=== PATIENT | female | born 1975 | race Caucasian/White ===

== ENCOUNTER → 2021-09-18 02:59 | Outpatient (CLI) | payer BC, SELFPAY ==
[2021-09-18 12:21] LABS: SARS-CoV-2 RNA PCR Negative
== END ==
PROVIDERS: Visit Provider Internal Medicine Gastroenterology
DX: Z01.812 Encounter for preprocedural laboratory examination (principal); Z20.822 Contact with and (suspected) exposure to COVID-19
CPT/HCPCS: C9803; U0003; U0005

== ENCOUNTER 2021-09-21 00:13 | Day surgery (SDC) | payer BC, SELFPAY ==
--- NOTE | 2021-09-18 13:41 | WPDGICN ---
Assessment and Plan Assessment and plan (1) Dysphagia: Code(s): R13.10 - Dysphagia, unspecified Status: Acute Assessment and Plan: EGD with possible biopsy or dilatation or cautery. We will need to consider adding fluticasone or other topical steroid therapy for eosinophilic esophagitis if biopsies show the same changes (2) Colon cancer screening: Code(s): Z12.11 - Encounter for screening for malignant neoplasm of colon Status: Acute Assessment and Plan: Colonoscopy with possible biopsy or polypectomy or cautery or injection of substances. GI Consult Note Consult date/time: 09/18/21 13:41 HPI: Radhika Morin is a 46 year old female with dysphagia of solid food. Two years ago it appears that she had an EGD for the similar symptoms. Biopsy showed eosinophilia in the esophagus, Both proximal and distal esophagus biopsies showed eosinophilia. She took an inhaled steroid for while but has been doing well with just omeprazole 40 mg daily and no recent dysphagia. She is undergoing colonoscopy. She has a family history of colon cancer in her paternal grand mother. Also her father just had 7 polyps Removed. Review of Systems Review of Systems: All systems reviewed & are unremarkable except as noted in HPI and below PMFSH Past Medical History Medical History Herpes simplex type 1 antibody positive Hx of gastroesophageal reflux (GERD) Screening mammogram for breast cancer Vitamin D deficiency Surgical History Surgical History H/O endoscopy H/O gynecological procedure mirena iud insertion - 2004 Mirena Iud removal 2010 Mirena Iud insertion -2020 History of tonsillectomy Family History Family History Other Cerebrovascular accident Colon polyp Heart disease Social History Social History Smoking status: Never smoker Alcohol intake: never Substance use: never Substance use type: does not use Living arrangements: with family Gender identity (if verbalized by the patient): Female Spiritual care concerns: No Meds Home Medications and Allergies Home Medications Medication Instructions Recorded Confirmed Type bupropion HCl 150 mg 24 hr tablet, 150 mg PO QAM 08/31/21 09/10/21 History extended release levonorgestrel 20 mcg/24 hours (7 1 insert INTRAUTERINE ONCE 08/31/21 09/10/21 History yrs) 52 mg intrauterine device omeprazole 40 mg capsule,delayed 40 mg PO DAILY 08/31/21 09/10/21 History release Allergies Allergy/AdvReac Type Severity Reaction Status Date / Time No Known Allergies Allergy Mild Verified 09/21/21 08:29 Exam Const: General: alert Orientation/consciousness: patient oriented x3 Resp: Auscultation: clear to auscultation bilaterally Cardio: Rhythm: regular rhythm GI: GI Palp: Yes Soft to palpation and No Tenderness to palpation present (GI) Neuro: General: patient oriented x3
[2021-09-21 08:31] VITALS: BP 131/93; PULSE 80; RESP 18; TEMP 36.1; O2SAT 98
[2021-09-21] MEDS: LACTATED RINGERS 1,000 ML 150 ML IV CONT (08:45)
--- NOTE | 2021-09-21 08:48 | WPDANESEPPF ---
Anes - Initial Pre Proc Eval Procedure: Operation Date: 09/21/21 09:30 Proposed Procedures p Esophagogastroduodenoscopy & Screening Colonoscopy - Brian Ko MD Date/Time: 09/21/21 08:48 Surgeon: Brian Ko MD Pre Op Diagnosis: neoplasm screening, eosinophilic esophagitis Patient Data Age: 46 Gender: F Height: 1.68 m Weight: 109.2 kg Last Vital Signs Temp 36.1 C L 09/21/21 08:31 Pulse 80 09/21/21 08:31 Resp 18 09/21/21 08:31 BP 131/93 H 09/21/21 08:31 Pulse Ox 98 09/21/21 08:31 Allergies Allergy/AdvReac Type Severity Reaction Status Date / Time No Known Allergies Allergy Mild Verified 09/21/21 08:29 Home Medications Medication Instructions Recorded Confirmed Type bupropion HCl 150 mg 24 hr tablet, 150 mg PO QAM 08/31/21 09/10/21 History extended release levonorgestrel 20 mcg/24 hours (7 1 insert INTRAUTERINE ONCE 08/31/21 09/10/21 History yrs) 52 mg intrauterine device omeprazole 40 mg capsule,delayed 40 mg PO DAILY 08/31/21 09/10/21 History release Patient hx anesthesia problems: none Family hx anesthesia problems: none Results Review: All pre-operative results and documents have been reviewed as part of the pre-operative evaluation. [facility], [facility] Past Medical History Medical History Herpes simplex type 1 antibody positive Hx of gastroesophageal reflux (GERD) Screening mammogram for breast cancer Vitamin D deficiency Surgical History Surgical History H/O endoscopy H/O gynecological procedure mirena iud insertion - 2004 Mirena Iud removal 2010 Mirena Iud insertion -2020 History of tonsillectomy Family History Family History Other Cerebrovascular accident Colon polyp Heart disease Social History Social History Smoking status: Never smoker Alcohol intake: never Substance use: never Substance use type: does not use Living arrangements: with family Gender identity (if verbalized by the patient): Female Spiritual care concerns: No Anes - Eval Final PreProcedure Day of Procedure 09/21/21 08:48 Patient weight: obese Heart: regular rate and rhythm Lungs: clear to auscultation Airway: Mallampati scale class 1 Neurological: alert and oriented Last oral intake: >/= 8 hours ASA classification: III Emergent: no Anesthetic plan: proceed Anesthesia type and monitoring: general GIVS and standard monitoring Results Review: All pre-operative results and documents have been reviewed as part of the pre-operative evaluation. Informed Consent: The patient's anesthetic plan and its attendant risks and benefits were discussed with the patient/family/POA. Questions were solicited and answers provided to the satisfaction of the patient/family/POA.
--- NOTE | 2021-09-21 09:46 | SUR.OPER ---
EGD: [id number] COLON:[id number]
[2021-09-21 10:14] VITALS: BP 113/79; PULSE 80; RESP 14; O2SAT 100
[2021-09-21 10:24] VITALS: BP 108/74; PULSE 77; RESP 16; O2SAT 100
[2021-09-21 10:35] VITALS: BP 124/78; PULSE 71; RESP 22; O2SAT 100
== END 2021-09-21 10:45 | disposition home or self-care (01) ==
PROVIDERS: PCP Nurse Practitioner Family; Visit Provider Internal Medicine Gastroenterology
PROC: 0DJ08ZZ Inspection of Upper Intestinal Tract, Via Natural or Artificial Opening Endoscopic (ICD-10-PCS; CPT 43235; principal; 2021-09-21 09:30)
DX: Z12.11 Encounter for screening for malignant neoplasm of colon (principal); Z80.0 Family history of malignant neoplasm of digestive organs; K63.5 Polyp of colon; K21.00 Gastro-esophageal reflux disease with esophagitis, without bleeding; E55.9 Vitamin D deficiency, unspecified; E66.9 Obesity, unspecified; Z68.38 Body mass index [BMI] 38.0-38.9, adult
CPT/HCPCS: 45385; 43239; 88305; J2001; J2704; J7120

== ENCOUNTER 2022-08-05 13:27 | Outpatient (CLI) | payer BC, SELFPAY ==
--- NOTE | ~2022-08-05 | PE_ITS ---
EXAMINATION: PET skull to mid thigh DATE: 08/05/2022 15:28 INDICATION: Nonspecific abnormal findings of lung field TECHNIQUE: Blood glucose level was 75 mg/dL. 10.943 mCi of 18-fluorodeoxyglucose (18-FDG) was adminis tered i.v. Low dose computed tomography (CT) images were acquired from the base of the brain to the p roximal thighs for attenuation correction and anatomic localization. Positron emission tomography (PE T) images were acquired in the same distribution beginning 54 minutes after injection. Images includi ng fused PET/CT images were reconstructed in axial, coronal, and sagittal planes. Automated exposure control technique was employed. The dose-length product was 792.05mGy-cm. COMPARISON: None FINDINGS: Head/neck: There is symmetric increased activity in the oral cavity, palatine tonsils, parotid glands, submandi bular glands, laryngeal muscles and ocular muscles without CT correlate, likely physiologic. Markedly FDG avid 1.9 x 1.2 cm inferior right jugular chain lymph node with maximal SUV of 24.5. No other pat hologically enlarged cervical lymphadenopathy or suspicious foci of increased FDG uptake in the visua lized head or neck. Chest: FDG avid at least 3 cm right hilar mass with maximal SUV of 15.4. Definitive discrimination the adia ns of the mass from the adjacent hilar vasculature is limited by similar density and absence of intra venous contrast. There are couple additional smaller. There is an approximately 3 x 4 cm right paratr acheal mass with mild peripheral FDG uptake but centrally photopenic suggesting either a cystic lesio n or centrally necrotic mass. FDG avid subcarinal and precarinal lymph nodes with maximal SUVs of 17. 7 and 6.4 cm respectively. There are few additional FDG avid right paratracheal lymph nodes the most cephalad with maximal SUV of 22.8 and measuring approximately 1.5 x 2.0 cm. Lungs are clear with no s uspicious pulmonary nodules, pneumonia, pulmonary edema or other pulmonary infiltrates. No pleural ef fusion. Heart size is normal. No pericardial effusion. Thoracic aorta is normal in caliber. Small sli ding-type hiatal hernia. Abdomen/pelvis/proximal thighs: Physiologic renal accumulation and excretion of FDG activity in the kidneys, bladder and along portio ns of ureters. Normal degree and heterogenous pattern of increased uptake throughout the liver withou t radiologic correlate or dominant FDG avid lesion. The gallbladder, pancreas, spleen and bilateral a drenal glands are normal. Mild uptake scattered throughout the bowels without radiologic correlate, a lso likely physiologic. IUD in expected position within the uterus. A couple left adnexal cysts the l arger measuring 3.4 cm. No other abnormal foci of increased FDG uptake or pathologically enlarged lym phadenopathy in the abdomen, pelvis or proximal thighs. Musculoskeletal: There is diffuse mild increased marrow uptake throughout the spine, pelvis and proximal femurs withou t radiologic correlate which could be related to anemia or less likely diffuse metastatic disease. Th ere is increased uptake at the left greater trochanter without radiologic correlate likely representi ng trochanteric bursitis. IMPRESSION: 1. Increased uptake associated with large lymphadenopathy at the right hilum, mediastinum and inferio r right jugular chain. Differential would include most likely lymphoma with secondary consideration m etastatic disease such as due to small cell lung cancer. Recommend ultrasound-guided core needle biop sy of the right jugular chain lymph node. 2. Diffuse mild increased marrow uptake without radiologic correlate which would favor anemia or othe r marrow stimulation therapy process over metastatic disease. 3. 3 x 4 cm right paratracheal region which is centrally photopenic with mild peripheral rim enhancem ent. This could represent a cystic lesion such as a foregut duplication cyst or a centr
[2022-08-05 13:58] LABS: Glucose Point of Care 75 mg/dl (65-105)
== END 2022-08-05 13:28 | disposition home or self-care (01) ==
PROVIDERS: PCP Nurse Practitioner Family; Visit Provider Nurse Practitioner Family
DX: R91.8 Other nonspecific abnormal finding of lung field (principal)
CPT/HCPCS: 78815; A9552